=== PATIENT | male | born 1960 | race Caucasian/White ===

== ENCOUNTER 2021-08-01 17:40 | Emergency (ER) | payer OTHER ==
[2021-08-01 19:02] VITALS: BP 142/75; TEMP 97.9
[2021-08-01] MEDS ORDERED: ALBUTEROL HFA INHALER INHALATION STA (20:09)
--- NOTE | 2021-08-01 20:13 | ED ---
General Adult HPI - General Source: patient, family, RN notes reviewed Mode of arrival: ambulatory Limitations: no limitations - History of Present Illness -: days(s) (5) Location: head, chest Severity scale (1-10): 0 Consistency: constant Improves with: none Worsens with: none Associated Symptoms: cough, other (congestion and body aches) Treatments Prior to Arrival: other (albuterol) <Toan Del Cid - Last Filed: 08/02/21 00:40> <Becky James - Last Filed: 08/02/21 16:37> - General Chief complaint: Upper Respiratory Infection Stated complaint: covid +,Wants antibody Time Seen by Provider: 08/01/21 20:00 - History of Present Illness Initial comments: Well-appearing 61-year-old male presents to the emergency room with complaints of cough congestion and body aches since July 27. Patient took a coronavirus test on the and is positive. He has been vaccinated. He is requesting the monoclonal antibodies infusion. He denies any chest pain, fevers, nausea vomiting or diarrhea. He does have history of asthma. (Toan Del Cid) - Related Data Previous Rx's Medication Instructions Recorded Albuterol Inhaler [Ventolin Hfa 2 puff INHALATION Q4H PRN #8 gm 08/01/21 Inhaler] Allergies Allergy/AdvReac Type Severity Reaction Status Date / Time No Known Allergies Allergy Verified 08/01/21 19:02 Review of Systems ROS Other: All systems not noted in ROS Statement are negative. <Toan Del Cid - Last Filed: 08/02/21 00:40> ROS Other: All systems not noted in ROS Statement are negative. <Becky James - Last Filed: 08/02/21 16:37> ROS Statement: Those systems with pertinent positive or pertinent negative responses have been documented in the HPI. Past Medical History Past Medical History: Asthma, Hypertension History of Any Multi-Drug Resistant Organisms: None Reported Past Surgical History: No Surgical Hx Reported Past Psychological History: No Psychological Hx Reported Smoking Status: Never smoker Past Alcohol Use History: Rare Past Drug Use History: None Reported <Toan Del Cid - Last Filed: 08/02/21 00:40> General Exam Limitations: no limitations General appearance: alert, in no apparent distress Head exam: Present: atraumatic, normocephalic, normal inspection Eye exam: Present: normal appearance, EOMI. Absent: scleral icterus, conjunctival injection, periorbital swelling ENT exam: Present: normal exam, normal oropharynx, mucous membranes moist Neck exam: Present: normal inspection, full ROM. Absent: tenderness, meningismus, lymphadenopathy, thyromegaly Respiratory exam: Present: wheezes. Absent: respiratory distress, stridor, chest wall tenderness, accessory muscle use Cardiovascular Exam: Present: regular rate, normal rhythm, normal heart sounds. Absent: systolic murmur, diastolic murmur, rubs, gallop, clicks Extremities exam: Present: full ROM, normal capillary refill Neurological exam: Present: alert, oriented X3, normal gait Psychiatric exam: Present: normal affect, normal mood Skin exam: Present: warm, dry, intact, normal color. Absent: rash, cyanosis, diaphoretic, erythema, pallor <Toan Del Cid - Last Filed: 08/02/21 00:40> Course Vital Signs 08/01/21 08/01/21 18:54 23:10 Temperature 97.9 F Pulse Rate 61 64 Respiratory 18 16 Rate Blood Pressure 142/75 O2 Sat by Pulse 97 97 Oximetry Medical Decision Making <Toan Del Cid - Last Filed: 08/02/21 00:40> <Becky James - Last Filed: 08/02/21 16:37> - Medical Decision Making Well-appearing 61-year-old male presents to the emergency room with complaints of cough congestion and body aches since July 27. He is Covid positive here today. He has been vaccinated. He requested the monoclonal antibodies infusion. He does have history of asthma. Patient tolerated the monoclonal antibodies infusion without difficulties. He was given albuterol inhaler as directed and follow up with his primary care doctor in 1 week. Return to emergency room if any new or worsening symptoms. (Toan Del Cid) I was available for consultation in the emergency department. The history and physical exam were done by the midlevel provider. I was consulted for this patients care. I reviewed the case with the midlevel provider and based on their presentation of the patient, I agree with the assessment, medical decision making and plan of care as documented. Chart was dictated using [employer] dictation software. Attempts were made to correct any dictation errors however some typographical errors may persist. (Becky James) - Lab Data Lab Results 08/01/21 Range/Units 22:16 Coronavirus (PCR) Detected A (Not Detectd) Disposition Is patient prescribed a controlled substance at d/c from ED?: No Time of Disposition: 23:04 <Toan Del Cid - Last Filed: 08/02/21 00:40> <Becky James - Last Filed: 08/02/21 16:37> Clinical Impression: COVID-19 Disposition: HOME SELF-CARE Condition: Good Instructions (If sedation given, give patient instructions): Coronavirus Disease 2019 (COVID-19) Additional Instructions: Return to the emergency room with any new or concerning symptoms. Vitamin C, vitamin D and zinc to improve immune health. Increase your fluid intake. Prescriptions: Albuterol Inhaler [Ventolin Hfa Inhaler] 2 puff INHALATION Q4H PRN #8 gm PRN Reason: Dyspnea Referrals: Nonstaff,Physician [Primary Care Provider] - 1-2 days
[2021-08-01] MEDS ORDERED: SODIUM CHLORIDE 0.9% 50 ML IVPB ONE (21:45)
[2021-08-01] MEDS ORDERED: BAMLANIVIMAB (EUA) 700 MG, ETESEVIMAB (EUA) 1,400 MG in SODIUM CHLORIDE 0.9% 50 ML IVPB ONE (22:15)
[2021-08-01 23:10] VITALS: PULSE 64; RESP 16
== END 2021-08-01 23:11 | disposition home or self-care (01) ==
LOC: EC 17:40
DX: U07.1 COVID-19 (principal); J45.909 Unspecified asthma, uncomplicated; I10 Essential (primary) hypertension
CPT/HCPCS: 99283; M0245; 87635; 94640